=== PATIENT | female | born 1945 | race Caucasian/White ===

== ENCOUNTER 2021-05-25 06:26 | Emergency (ER) | payer MEDICARE, OTHER | END 2021-05-25 09:06 | disposition home or self-care (01) | LOC: FER 06:26 | DX: S32.592A Other specified fracture of left pubis, initial encounter for closed fracture (principal); S32.10XA Unspecified fracture of sacrum, initial encounter for closed fracture; N39.0 Urinary tract infection, site not specified; Z88.1 Allergy status to other antibiotic agents; Z91.013 Allergy to seafood; W19.XXXA Unspecified fall, initial encounter; Y93.73 Activity, racquet and hand sports; Y92.009 Unspecified place in unspecified non-institutional (private) residence as the place of occurrence of the external cause ==